=== PATIENT | female | born 1960 | race Caucasian/White ===

== ENCOUNTER → 2023-05-03 09:45 | Outpatient (CLI) | payer BC, OTHER, SELFPAY ==
--- NOTE | ~2023-05-03 | MR_ITS ---
MRA HEAD History: Dizziness and giddiness Technique: 3D time of flight MRA of the head is performed. Findings: The right and left distal vertebral arteries and the basilar and posterior cerebral arterie s are normal. Right and left distal internal carotid arteries and anterior and middle cerebral arteri es are normal. There is no aneurysm, stenosis, or occlusion. Impression: No occlusion, stenosis, or aneurysm. Reviewed, dictated and finalized at location . Impression: No occlusion, stenosis, or aneurysm.
--- NOTE | ~2023-05-03 | MR_ITS ---
MRI of the brain Clinical History: Dizziness and giddiness Technique: Axial and sagittal T1-weighted images were acquired. These were followed by axial T2-weigh felicitas, diffusion weighted, gradient, and FLAIR images. Thin cut coronal and axial T1-weighted and T2-we ighted images of the internal auditory canals were performed. Following intravenous administration of 9 cc MultiHance gadolinium, T1-weighted fat-sat imaging was performed through the brain in the axial and coronal planes. Thin cut T1-weighted postcontrast imaging was also performed through the interna l auditory canals in the axial and coronal planes. Findings: No significant signal abnormality seen in the brain parenchyma. No acute infarct, intracran ial hemorrhage, or mass lesion. Ventricles and subarachnoid spaces are unremarkable. Orbits are unremarkable. Paranasal sinuses and m astoid air cells are clear. Major intracranial flow voids appear intact. Sagittal midline structures are intact. No abnormal mass lesion seen at the internal auditory canals or cerebellopontine angle regions. No abnormal postcontrast enhancement identified. IMPRESSION: Unremarkable exam. Reviewed, dictated and finalized at location . IMPRESSION: Unremarkable exam.
== END ==
PROVIDERS: PCP Family Medicine; Visit Provider Family Medicine
DX: R51.9 Headache, unspecified (principal); R42 Dizziness and giddiness
CPT/HCPCS: 70544; 70553; A9577